=== PATIENT | female | born 1980 | race Caucasian/White ===

== ENCOUNTER 2017-05-25 14:46 | Emergency (ER) | payer OTHER ==
[~2017-05-25] VITALS: Ht 160 cm; Wt 69.7 kg
[~2017-05-25 14:46] MED LIST: ADVAIR 250/501 DISK IH; CLONAZEPAM0.5 MG PO; COMBIVENT INH14.7 GM IH; LISINOPRIL10 MG PO; NAPROXEN PO; NAPROXEN500 MG PO; NOHOMEMEDS; ONDANSETRON HCL4 MG PO; PERCOCET 5/31 TABLET PO; PERCOCET PO; PREDNISONE20 MG PO; PROVENTIL,2.5 MG/3 M IH; SIMVASTATIN20 MG PO; ULTRAM50 MG PO
[2017-05-25 16:39] VITALS: BP 116/68
[2017-05-25] MEDS ORDERED: ULTRAM50 MG PO (16:40)
== END 2017-05-25 17:09 | disposition home or self-care (01) ==
LOC: EME 14:46
PROC: 2W3HX1Z Immobilization of Left Thumb using Splint (ICD-10-PCS; principal; 2017-05-25)
DX: S63.602A Unspecified sprain of left thumb, initial encounter (principal); J45.909 Unspecified asthma, uncomplicated; X50.1XXA Overexertion from prolonged static or awkward postures, initial encounter; Y93.89 Activity, other specified; Y92.818 Other transport vehicle as the place of occurrence of the external cause
CPT/HCPCS: 73140; 99281; 99284